=== PATIENT | male | born 1960 | race Caucasian/White ===

== ENCOUNTER → 2019-01-17 | Outpatient (CLI) | payer MEDICARE ==
[~2019-01-17] VITALS: Ht 195.6 cm; Wt 189.5 kg
[~2019-01-17] MED LIST: CARVEDILOL25 MG PO; ESSENTIAL DAIL1 EACH PO; KLONOPIN 0.5MG0.5 MG PO; KLOR-CON M2020 MEQ PO; LASIX80 M1 PO; PACERONE200 MG PO; WARFARIN2 MG; ZESTRIL40 MG PO
[2019-01-17 10:02] VITALS: BP 116/65
[2019-01-17 11:11] LABS: EOS # 0.1 (0.04-0.40); EOS % 1.7 % (0.0-4.0); HEMATOCRIT 34.1 % (42.0-52.0); HEMOGLOBIN 10.7 g/dL (13.5-18.0); MEAN CELL VOLUME 103 fl (78-100); MEAN CORPUSCULAR HEMOGLOBIN 32 pg (27-31); MEAN CORPUSCULAR HGB CONC 31 g/dL (33-37); MEAN PLATELET VOLUME 9.8 fl (7.4-10.4); MONO # 0.5 (0.20-0.80); NEU # 3.7 (1.40-6.50); PLATELET COUNT 227 K/mm3 (130-400); RED BLOOD COUNT 3.31 M/mm3 (4.20-5.60); RED CELL DISTRIBUTION WIDTH 13.9 % (11.5-14.5); WHITE BLOOD COUNT 5.3 K/mm3 (4.8-10.8)
[2019-01-17 11:45] VITALS: BP 120/77
== END ==
LOC: AMSURD 09:54
PROVIDERS: Physician Assistant Medical
DX: I95.9 Hypotension, unspecified (principal)
CPT/HCPCS: J7030